=== PATIENT | female | born 1980 | race Caucasian/White ===

== ENCOUNTER 2017-03-16 21:33 | Emergency (ER) | payer BC ==
[~2017-03-16] VITALS: Ht 177.8 cm; Wt 74.8 kg
[~2017-03-16 21:33] MED LIST: FLEXERIL; IBUPROFEN 600600 M1 PO; NEXIUM20 MG; NORCO 5-325 TA1 EACH; NORCO 5-325 TA1 EACH PO; RITALIN5 MG PO
[2017-03-16] MEDS ORDERED: PRILOSEC OTC20 MG PO (22:14)
[2017-03-16] MEDS ORDERED: ASPIR 8181 MG PO (22:14)
[2017-03-16] MEDS ORDERED: ADDERALL 10 MG10 MG PO (22:15)
[2017-03-17 00:34] LABS: INR 1.1; PROTIME 11.2 Seconds (9.3-11.4)
[2017-03-17] MEDS ORDERED: COUMADIN 5 MG TA5 M1 PO (00:38)
[2017-03-17] MEDS ORDERED: ENOXAPARIN80 MG/0.1 SUBQ (00:38)
[2017-03-17] MEDS ORDERED: HYDROCODONE-AP1 EAC6 PO (00:42)
[2017-03-17 01:22] VITALS: BP 138/76
== END 2017-03-17 01:01 | disposition home or self-care (01) ==
LOC: ER 21:33
PROVIDERS: Physician Assistant
DX: I82.401 Acute embolism and thrombosis of unspecified deep veins of right lower extremity (principal)